=== PATIENT | female | born 1995 | race Caucasian/White ===

== ENCOUNTER 2024-07-31 01:06 | Day surgery (SDC) | payer OTHER, SELFPAY ==
--- NOTE | 2024-07-17 16:55 | SUR.PREOP ---
Report to the Outpatient Waiting Room, entrance under the green pavilion located off [facility], at time _1130_ on date _07/31/2024_. Planned Procedure Time: _1330_.? Time changes happen often and if your time is changed the preop area will call you the afternoon before. - You and your visitor will be asked to self-screen and do not enter if you have any COVID symptoms. Please call surgeon if you need to reschedule. - A mask is optional within the hospital at this time. Patients may have clear liquids (water, carbonated beverages, clear teas, apple juice) until 3 hours (1030) prior to surgery with a maximum of 20 ounces. - No food from midnight until time of surgery and no smoking, or chewing Tabacco (or any form of nicotine). No chewing gum, candy or mints. - Infants may have breast milk until 4 hours before surgery, infant formula 6 hours prior to surgery. - Children will be allowed to drink immediately following surgery.? If applicable, please bring a bottle or sippy cup to assist with drinking. Juice, water, soda, and popsicles are readily available.? For infants on formula, please bring formula the day of surgery.? Pacifiers are allowed. Take only the following medications with a SIP of water on the morning of surgery: _lamotrigine, aripiprazole_ DO NOT STOP ANY OF YOUR OTHER PRESCRIPTION MEDICATIONS PRIOR TO SURGERY EXCEPT THE FOLLOWING Medications to discontinue per physician _NA_ Date to take last dose_NA_ Please no make-up, nail mohawk, hairspray, perfume, deodorant, or body powder the day of surgery.? No jewelry (including any body piercings) or valuables the day of surgery, leave them at home.? Please take a shower or bath the night before, or the morning of, surgery with an antibacterial soap.? Wear comfortable, loose fitting clothing.? Children are encouraged to wear pajamas. - Jewelry must be removed prior to entering the operating room.? Rings and piercings that are not removed may be cut off. - The hospital will not accept responsibility for valuables.? - Please leave all valuables, including medications, at home the day of surgery. If you are going home after surgery, a licensed bung driver must drive you home.? - NO public transportation without another adult if you receive anesthesia. - We recommend that an adult stay with you for 24 hours following discharge. - We also recommend that you do not drive, make important decision, drink alcoholic beverages, or take any drugs that were not prescribed by your health care provider for at least 24 hours after your discharge time. For Pediatric surgeries, we recommend two adults accompany the child home. Hold all vitamins and supplements for 3 days per anesthesiologist. Follow any additional instructions given to you from your surgeon. Telephone instructions given to _To_and asked if any additional questions and then verbalized understanding. Patient advised to call surgeon office or pre surgery nurse liaison [phone] if any additional questions.
[2024-07-17 17:08] VITALS: BMI 21.3
[2024-07-31] VITALS (8 sets, daily range): BP systolic 102–135; BP diastolic 61–97; PULSE 69–87; RESP 12–15; TEMP 36.3–36.7; O2SAT 96–100; BMI 21.4
--- OUTSIDE RECORDS SUMMARY | 2024-07-31 01:08 | XMS_ITS | Patient Health Summary ---
Author Organization [facility] Address [address] [facility] [place] [address] Care Team Providers Care Lead Cook Name Role Phone Stacie Guthrie APRN-EVA Unavailable [phone] Karen Huizar MD Unavailable [phone] Gavino Mills MD Primary Care Provider [phone] Note from [facility],non-owned Affiliates and Associated Physician Practices is amultiple site organization consisting of ambulatory clinics and hospital sitesin [place], [place], [place] and [place]. This disclosure is being madepursuant to the Care Everywhere program and may not contain all information available regarding this patient. Last updated 18.[facility] Allergies * Amoxicillin(Rash) -Medium Criticality * Augmentin(Rash) -Medium Criticality * Nickel(Rash) -Medium Criticality Medications Be aware that medications may not be up to date on this document. Always verify current medications with the patient. No known medications Active Problems Problem Noted Date Diagnosed Date Vitamin D deficiency 10/29/2019 Major depressive disorder, recurrent episode, se juancarlos 11/21/2013 Immunizations * Covid Moderna primary monovalent 12+ yr 0.5mL(Given 09/18/2020) * INFLUENZA VACCINE(Given 03/13/2020) * TDAP (7yrs+)(Given 10/29/2019) Social History Tobacco Use Types Packs/Day Years Used Date Smoking Tobacco: Never Smokeless Tobacco: Never Alcohol Use Standard Drinks/Week Comments Yes 0 (1 standard drink = 0.6 oz pur e alcohol) social AUDIT-C Answer Date Recorded Q1: How often do you have a drink containing alc ohol? Never 08/05/2022 Average Number of Drinks Not on file 023 Frequency of Binge Drinking Not on file 07/15 PHQ-2 Answer Date Recorded Patient Health Questionnaire-2 Score 0 09/27/2023 Sex and Gender Information Value Date Recorded Sex Assigned at Female 02/06/2023 6:04 AM CDT Gender Identity Female 02/06/2023 6:04 AM CDT Sexual Orientation Straight 02/06/2023 6: 04 AM CDT Last Filed Vital Signs Vital Sign Reading Time Taken Comments Blood Pressure 116/62 09/27/2023 2:40 PM CDT Pulse 77 09/27/2023 2:40 PM CDT Temperature 36.8 C (98.2 F) 02/07/2023 3:52 PM CDT Respiratory Rate 22 02/07/2023 3:52 PM CDT Oxygen Saturation 96% 09/27/2023 2:40 PM CDT Inhaled Oxygen Concentration 100% 01/25/2013 1 0:27 PM CDT Weight 66.7 kg (147 lb) 09/27/2023 2:40 PM CDT Height 167.6 cm (5' 6 ) 09/27/2023 2:40 PM CDT Body Mass Index 23.73 09/27/2023 2:40 PM CDT Procedures * CARDIAC EKG ORDER(Performed 02/08/2023) * GLUCOSE - POINT OF CARE(Performed 02/07/2023) * COMPREHENSIVE METABOLIC PANEL(Performed 02/07/2023) * CBC W AUTO DIFFERENTIAL(Performed 02/07/2023) * EKG 12-LEAD(Performed 02/07/2023) Performed for Dizziness * HCG BETA BLOOD QUANTITATIVE(Performed 02/06/2023) * COMPREHENSIVE METABOLIC PANEL(Performed 02/06/2023) * CBC W AUTO DIFFERENTIAL(Performed 02/06/2023) * LIPASE BLOOD(Performed 08/05/2022) * COMPREHENSIVE METABOLIC PANEL(Performed 08/05/2022) * CBC W AUTO DIFFERENTIAL(Performed 08/05/2022) * SARS-COV-2 (COVID-19) RAPID(Performed 08/05/2022) * INTERPRETATION REFLEXED(Performed 08/27/2021) Performed for Need for hepatitis C screening test * MAGNESIUM BLOOD(Performed 08/27/2021) Performed for Dizziness, LOC (loss of consciousness) (HCC), Brain fog, Decreased appetite * HEPATITIS C ANTIBODY W RFLX PCR(Performed 08/27/2021) Performed for Need for hepatitis C screening test * HEMOGLOBIN A1C(Performed 08/27/2021) Performed for Dizziness, LOC (loss of consciousness) (HCC), Brain fog, Decreased appetite * T4 FREE(Performed 08/27/2021) Performed for Dizziness, LOC (loss of consciousness) (HCC), Brain fog, Decreased appetite * T3 FREE(Performed 08/27/2021) Performed for Dizziness, LOC (loss of consciousness) (HCC), Brain fog, Decreased appetite * TSH(Performed 08/27/2021) Performed for Dizziness, LOC (loss of consciousness) (HCC), Brain fog, Decreased appetite * VITAMIN B12 FOLATE PANEL(Performed 08/27/2021) Performed for Dizziness, LOC (loss of consciousness) (HCC), Brain fog, Decreased appetite * VITAMIN D 25-HYDROXY(Performed 08/27/2021) Performed for Dizziness, LOC (loss of consciousness) (HCC), Brain fog, Decreased appetite * COMPREHENSIVE METABOLIC PANEL(Performed 08/27/2021) Performed for Dizziness, LOC (loss of consciousness) (HCC), Brain fog, Decreased appetite * CBC W AUTO DIFFERENTIAL(Performed 08/27/2021) Performed for Dizziness, LOC (loss of consciousness) (HCC), Brain fog, Decreased appetite * EKG 12-LEAD(Performed 08/27/2021) Performed for Dizziness * FL OR CHOLANGIOGRAM(Performed 07/08/2020) Performed for Pain * PATHOLOGY TISSUE EXAM (STL)(Performed 07/08/2020) Performed for Gallstones, Biliary colic * PA LAP,CHOLECYSTECTOMY/GRAPH(Performed 07/08/2020) Performed for GALLSTONES * HCG URINE QUAL POCT NOTIFICATION(Performed 07/08/2020) Performed for Pre-op testing * HCG URINE QUALITATIVE - POCT (IP) INTERFACED(Performed 07/08/2020) * AMB REFERRAL TO COLORECTAL SURGERY(Performed 06/30/2020) Performed for Nausea and vomiting, intractability of vomiting not specified, unspecified vomiting type, Abnormal abdominal CT scan, Calculus of gallbladder without cholecystitis without obstruction, Elevated liver enzymes * IMAGING/RADIOLOGY/XRAY RESULTS ORDER(Performed 06/27/2020) * IMAGING/RADIOLOGY/XRAY RESULTS ORDER(Performed 06/27/2020) * LAB RESULTS ORDER(Performed 06/27/2020) * NM HEPATOBILIARY W EF(Performed 05/12/2020) Performed for Hematemesis with nausea * LAB RESULTS ORDER(Performed 05/01/2020) * PATHOLOGY/CYTOLOGY REPORT ORDER(Performed 01/29/2020) * EGD(Performed 01/28/2020) Performed for History of gastric ulcer, Hematemesis with nausea, Gastroesophageal reflux disease, esophagitis presence not specified * LAB RESULTS ORDER(Performed 01/24/2020) * CULTURE URINE(Performed 11/20/2019) Performed for Dysuria * MAGNESIUM BLOOD(Performed 09/25/2019) * LIPASE BLOOD(Performed 09/25/2019) * COMPREHENSIVE METABOLIC PANEL(Performed 09/25/2019) * CBC W AUTO DIFFERENTIAL(Performed 09/25/2019) * US PELVIS W TRANSVAG W DOP NON OB(Performed 06/10/2019) Performed for RLQ abdominal pain, Cyst of right ovary * HCG URINE QUAL POCT NOTIFICATION(Performed 06/10/2019) * CT ABDOMEN PELVIS W CONTRAST(Performed 06/10/2019) Performed for RLQ abdominal pain * HCG URINE QUALITATIVE - POCT (IP) INTERFACED(Performed 06/10/2019) * URINALYSIS REFLEX MICROSCOPIC REFLEX CULTURE(Performed 06/10/2019) * LIPASE BLOOD(Performed 06/10/2019) * COMPREHENSIVE METABOLIC PANEL(Performed 06/10/2019) * CBC W AUTO DIFFERENTIAL(Performed 06/10/2019) * CT RENAL STONE(Performed 01/31/2019) Performed for Gross hematuria, Flank pain, acute * HCG URINE QUALITATIVE - POCT (IP) INTERFACED(Performed 01/31/2019) * URINE MICROSCOPIC ONLY REFLEX TO CULTURE(Performed 01/31/2019) * URINALYSIS REFLEX MICROSCOPIC REFLEX CULTURE(Performed 01/31/2019) * CULTURE URINE(Performed 01/31/2019) * HCG URINE QUAL POCT NOTIFICATION(Performed 01/31/2019) * COMPREHENSIVE METABOLIC PANEL(Performed 01/31/2019) * CBC W AUTO DIFFERENTIAL(Performed 01/31/2019) * PATHOLOGY/CYTOLOGY REPORT ORDER(Performed 01/17/2019) * CARDIAC RHYTHM STRIP ORDER(Performed 01/17/2019) * GROSS + MICRO EXAM (ILL)(Performed 01/16/2019) Performed for Severe dysplasia of cervix * CONIZATION CERVIX LOOP ELECTRODE(Performed 01/16/2019) Performed for Severe dysplasia of cervix * CBC W AUTO DIFFERENTIAL(Performed 01/16/2019) Performed for Severe dysplasia of cervix * URINALYSIS REFLEX TO MICROSCOPIC NO CULTURE(Performed 01/16/2019) Performed for Severe dysplasia of cervix * HCG URINE QUALITATIVE - POCT (IP) BEAKER - ILL(Performed 01/16/2019) Performed for Severe dysplasia of cervix * HCG URINE QUALITATIVE - POCT (IP) BEAKER - ILL(Performed 11/26/2018) * URINE MICROSCOPIC ONLY REFLEX TO CULTURE(Performed 11/26/2018) * URINALYSIS REFLEX MICROSCOPIC REFLEX CULTURE(Performed 11/26/2018) * LIPASE BLOOD(Performed 11/26/2018) * COMPREHENSIVE METABOLIC PANEL(Performed 11/26/2018) * CBC W AUTO DIFFERENTIAL(Performed 11/26/2018) * CULTURE STREP GROUP A(Performed 11/26/2018) * STREP A SCREEN DIRECT W RFLX STREP A CULTURE(Performed 11/26/2018) * URINE MICROSCOPIC ONLY REFLEX TO CULTURE(Performed 05/30/2018) * URINALYSIS REFLEX MICROSCOPIC REFLEX CULTURE(Performed 05/30/2018) * XR ABD OBSTR SERIES W CHEST 1VW(Performed 05/30/2018) Performed for Constipation, unspecified constipation type * US PELVIS COMPLETE(Performed 12/21/2013) Performed for Pelvic pain in female, Hx of ovarian cyst * HCG URINE QUALITATIVE - POCT (IP) BEAKER - ILL(Performed 01/28/2013) * US TRANSVAG ONLY(Performed 01/26/2013) Performed for Abdominal pain, left lower quadrant * COMPREHENSIVE METABOLIC PANEL(Performed 01/25/2013) * CBC W AUTO DIFFERENTIAL(Performed 01/25/2013) * URINALYSIS REFLEX TO MICROSCOPIC NO CULTURE(Performed 01/25/2013) * URINE MICROSCOPIC ONLY(Performed 01/25/2013) * GROSS + MICRO EXAM(Performed 09/16/2008) Results * CARDIAC EKG ORDER (02/08/2023 3:37 PM CDT) Narrative 02/08/2023 3:37 PM CDT Ordered by an unspecified provider. Scanned Document CARDIAC SERVICES ORD ERABLES * GLUCOSE - POINT OF CARE (02/07/2023 4:08 PM CDT) Glucose WB/POC 91 70 - 106 mg/dL 02/08/2023 2:59 PM CDT [facility] Specimen Type Venous 02/08/2023 2:59 PM CDT [facility] Blood BLOOD SPECIMEN / Unknown 02/07/2023 4:08 PM CDT 02/08/2023 2:59 PM CDT Provider Unknown LAB - POINT OF CARE ORDERABLES [facility] [address] [place] [address] * (ABNORMAL) CBC W AUTO DIFFERENTIAL (02/07/2023 4:08 PM CDT) Only the most recent of10 resultswithin the time period is included. WBC 13.6(H) 4.4 - 10.7 x10E9/L 02/07/2023 4:38 PM CDT [facility] WBC Corrected 02/07/2023 4:38 PM CDT [facility] RBC 4.16 3.80 - 5.20 x10E12/L 02/07/2023 4:38 PM CDT [facility] Hemoglobin 12.2 12.0 - 15.6 gm/dL 02/07/2023 4:38 PM CDT [facility] Hematocrit 36.6 35.9 - 45.5 % 02/07/2023 4:38 PM CDT [facility] MCV 88.0 80.7 - 98.3 fl 02/07/2023 4:38 PM CDT [facility] MCH 29.3 26.7 - 34.0 pg 02/07/2023 4:38 PM CDT [facility] MCHC 33.3 30.8 - 35.9 gm/dL 02/07/2023 4:38 PM CDT [facility] Platelet Count 191 153 - 416 x10E9/L 02/07/2023 4:38 PM CDT [facility] RDW-CV 12.1 12.1 - 14.9 % 02/07/2023 4:38 PM CDT [facility] MPV 11.7 9.4 - 12.9 fl 02/07/2023 4:38 PM CDT [facility] Neutrophils % 83.6(H) 44.0 - 73.0 % 02/07/2023 4:38 PM CDT [facility] Lymphocytes % 9.4(L) 20.0 - 43.0 % 02/07/2023 4:38 PM CDT [facility] Monocytes % 6.4 5.0 - 13.0 % 02/07/2023 4:38 PM CDT [facility] Eosinophils % 0.0 0.0 - 6.0 % 02/07/2023 4:38 PM CDT [facility] Basophils % 0.1 0.0 - 2.0 % 02/07/2023 4:38 PM CDT [facility] Immature Granulocytes 0.5 0 - 1 % 02/07/2023 4:38 PM CDT [facility] Neutrophil Absolute 11.35(H) 2.01 - 7.14 x10E9/L 02/07/2023 4:38 PM CDT [facility] Lymphocytes Absolute 1.28 1.07 - 3.94 x10E9/L 02/07/2023 4:38 PM CDT [facility] Monocytes Absolute 0.87 0.26 - 1.07 x10E9/L 02/07/2023 4:38 PM CDT [facility] Eosinophils Absolute 0.00 0 - 0.47 x10E9/L 02/07/2023 4:38 PM CDT [facility] Basophils Absolute 0.02 0 - 0.08 x10E9/L 02/07/2023 4:38 PM CDT [facility] Immature Granulocytes Absolute 0.07(H) 0.00 - 0.06 x10E9/L 02/07/2023 4:38 PM CDT [facility] nRBC Auto 0 /100 WBC 02/07/2023 4:38 PM CDT [facility] Blood BLOOD SPECIMEN / Unknown Venipuncture / Unknown 02/07/2023 4:08 PM CDT 02/07/2023 4:34 PM CDT Valery Guzmán DROP WIRE HANGER-CAGE CLERK LAB - HEMATOLOGY ORDERABLES [facility] [address] [place] [address] * (ABNORMAL) COMPREHENSIVE METABOLIC PANEL (02/07/2023 4:08 PM CDT) Only the most recent of9 resultswithin the time period is included. Glucose 85 70 - 105 mg/dL 02/07/2023 4:58 PM CDT [facility] Sodium 140 136 - 145 mmol/L 02/07/2023 4:58 PM CDT [facility] Potassium 3.7 3.5 - 5.1 mmol/L 02/07/2023 4:58 PM CDT [facility] Chloride 109(H) 98 - 107 mmol/L 02/07/2023 4:58 PM CDT [facility] CO2 17(L) 23 - 31 mmol/L 02/07/2023 4:58 PM CDT [facility] Calcium 9.3 8.4 - 10.4 mg/dL 02/07/2023 4:58 PM CDT [facility] Anion Gap 14 8 - 18 mmol/L 02/07/2023 4:58 PM CDT [facility] BUN 12 7 - 18.7 mg/dL 02/07/2023 4:58 PM CDT [facility] Creatinine 0.87 0.57 - 1.11 mg/dL 02/07/2023 4:58 PM CDT [facility] Alkaline Phosphatase 47 40 - 150 U/L 02/07/2023 4:58 PM CDT [facility] ALT 17 0 - 61 U/L 02/07/2023 4:58 PM CDT [facility] AST 20 5 - 34 U/L 02/07/2023 4:58 PM CDT [facility] Protein Total 7.3 6.4 - 8.3 gm/dL 02/07/2023 4:58 PM CDT [facility] Albumin 4.5 3.5 - 5.2 gm/dL 02/07/2023 4:58 PM CDT [facility] Bilirubin Total 1.2 0.2 - 1.2 mg/dL 02/07/2023 4:58 PM CDT [facility] eGFR by CKD-EPI >90 >=90 mL/min/1.7 3 m2 02/07/2023 4:58 PM CDT [facility] Blood BLOOD SPECIMEN / Unknown Venipuncture / Unknown 02/07/2023 4:08 PM CDT 02/07/2023 4:34 PM CDT Valery Guzmán APRN-CAGE CLERK LAB - CHEMISTRY ORDERABLES Performing Organization Address City/[facility]/ZIP Co de Phone Number [facility] [address] [place] [address] * EKG 12-LEAD (02/07/2023 4:00 PM CDT) Only the most recent of2 resultswithin the time period is included. Ventricular Rate 73 BPM [facility] Atrial Rate 73 BPM [facility] P-R Interval 118 ms [facility] QRS Duration ms 82 ms [facility] Q-T Interval ms 398 ms [facility] QTC Calculation (Bezet) 438 ms [facility] Calculated P [employer] 61 degrees [facility] Calculated R [employer] 78 degrees [facility] Calculated T [employer] 67 degrees [facility] Interpretation EKG Normal sinus rhythm with sinus arrhythmia Cannot rule out Anterior infarct , age undetermined Abnormal ECG No previous ECGs available Confirmed by [facility] ([id number] on 02/08/2023 10:21:23 AM [facility] 02/07/2023 4:00 PM CDT 02/08/2023 10:21 AM CDT Brody Quiles MD ECG ORDERABLES Performing Organization Address City/[facility]/ZIP Co de Phone Number [facility] * HCG BETA BLOOD QUANTITATIVE (02/06/2023 5:04 AM CDT) hCG Quantitative <1.20 mIU/mL 02/07/20 6:38 AM CDT [facility] Blood BLOOD SPECIMEN / Unknown Venipuncture / Unknown 02/06/2023 5:04 AM CDT 02/06/2023 5:09 AM CDT Narrative [facility] - 02/06/2023 6:38 AM CDT hCG Reference Range, mIU/mL: Males 0-2.0 Non Females 0-6.0 Perimenopausal Females ages 41-55* 0-7.7 Postmenopausal Females age >55* 0-14 Females, Weeks after Last Menstrual Period 0.2-1 week 5-50 1 - 2 weeks 50-500 2 - 3 weeks 100-5000 3 - 4 weeks 500-10,000 4 - 5 weeks 1000-50,000 5 - 6 weeks 10,000-100,000 6 - 8 weeks 15,000-200,000 2 - 3 months 10,000-100,000 Trophoblastic Disease >100,000 *In higher than expected hCG in females > age 40, a serum FSH >20 IU/L makes unlikely. You Harrell MD LAB - CHEMISTRY O RDERABLES [facility] [address] [place] [address] * SARS-COV-2 (COVID-19) RAPID (08/05/2022 10:48 PM CAR STARTER) COVID-19 PCR Not detected Not detected 08/05/19 11:38 PM CAR STARTER [facility] Microbiology SPECIMEN FROM NASOPHARYNGEAL STRUCTURE / Unknown Collection / Unknown 08/05/2022 10:48 PM CAR STARTER 08/05/2022 11:05 PM CAR STARTER Narrative [facility] - 08/05/2022 11:38 PM CAR STARTER The Cepheid Xpert Xpress SARS-COV-2 has been authorized by the Food and Drug Administration (FDA) under an Emergency Use Authorization (EUA). This test has been validated in accordance with the FDA's guidance document Policy for Diagnostic Testing in Laboratories Certified to perform High Complexity Testing under CLIA prior to Emergency Use Authorization for Coronavirus Disease-2019 during the Public Health Emergency issued on August 11, 2019. FDA independent review of this validation is pending. This test is only authorized for the duration of the time the declaration that circumstances exist justifying the authorization of emergency use of in vitro diagnostic tests for detection of SARS-COV-2 virus and/or diagnosis of COVID-19 infection under 564(b) (1) of the Act. 21 U.S.C. 360bbb-3 (b) (1), unless the authorization is terminated or revoked sooner. Fact Sheets for this EUA assay are available upon request. Juanito Adams MD LAB - MICROBIOLOGY O RDERABLES Performing Organization Address City/[facility]/ZIP Co de Phone Number [facility] [address] [place] [id number] * LIPASE BLOOD (08/05/2022 10:48 PM CAR STARTER) Only the most recent of4 resultswithin the time period is included. Lipase 58 8 - 78 U/L 08/05/2022 11:26 PM CAR STARTER [facility] Blood BLOOD SPECIMEN / Unknown Venipuncture / Unknown 08/05/2022 10:48 PM CAR STARTER 08/05/2022 11:05 PM CAR STARTER Juanito Adams MD LAB - CHEMISTRY ORDE RABSUSAN Performing Organization Address [facility] Co de Phone Number [facility] [address] [place] [address] * INTERPRETATION REFLEXED (08/27/2021 3:46 PM CDT) Interpretation [facility] ACCOUNT BILL Comment: Negative Not infected with HCV, unless recent infection is suspected or other evidence exists to indicate HCV infection. 08/27/2021 3:46 PM CDT 08/27/2021 Narrative Resulting Agency Comment Lab Testing performed at: [facility] [address] [facility] [phone] Sade Aragon DROP WIRE HANGER-CAGE CLERK LAB - SEROLOGY ORDERABLES Performing Organization Address City/[facility]/ZIP Co de Phone Number [facility] ACCOUNT BILL [address] [place] [address] * HEPATITIS C ANTIBODY W RFLX PCR (08/27/2021 3:46 PM CDT) Hepatitis C Antibody <0.1 0.0 - 0.9 s/co ratio [facility] ACCOUNT BILL Blood BLOOD SPECIMEN / Unknown 08/27/2021 3:46 PM CDT 08/27/2021 Narrative Resulting Agency Comment Lab Testing performed at: [facility] [address] [facility] [phone] Sade Aragon DROP WIRE HANGER-CAGE CLERK LAB - CHEMISTRY ORDERABLES [facility] ACCOUNT BILL [address] [place] [address] * T3 FREE (08/27/2021 3:46 PM CDT) Pathologist [facility] T3 Free 3.0 2.0 - 4.4 pg/mL [facility] ACCOUNT BILL Blood BLOOD SPECIMEN / Unknown 08/27/2021 3:46 PM CDT 08/27/2021 Narrative Resulting Agency Comment Lab Testing performed at: [facility] [address] [facility] [place] [phone] Sade Aragon DROP WIRE HANGER-CAGE CLERK LAB - CHEMISTRY ORDERABLES Performing Organization Address City/[facility]/ZIP Co de Phone Number [facility] ACCOUNT BILL [address] [place] [address] * HEMOGLOBIN A1C (08/27/2021 3:46 PM CDT) Pathologist [facility] Hemoglobin A1c 5.4 4.8 - 5.6 % [facility] ACCOUNT BILL Comment: . Prediabetes: 5.7 - 6.4 Diabetes: >6.4 Glycemic control for adults with diabetes: <7.0 Blood BLOOD SPECIMEN / Unknown 08/27/2021 3:46 PM CDT 08/27/2021 Narrative Resulting Agency Comment Lab Testing performed at: [facility] [address] [facility] [phone] Saed Aragon DROP WIRE HANGER-CAGE CLERK LAB - CHEMISTRY ORDERABLES [facility] ACCOUNT BILL [address] [place] [address] * VITAMIN D 25-HYDROXY (08/27/2021 3:46 PM CDT) Vitamin D, 25 Hydroxy 32.1 30.0 - 100.0 ng/mL [facility] ACCOUNT BILL Comment: Vitamin D deficiency has been defined by the [place] of [employer] and an Endocrine Society practice guideline as a level of serum 25-OH vitamin D less than 20 ng/mL (1,2). The Endocrine Society went on to further define vitamin D insufficiency as a level between 21 and 29 ng/mL (2). 1. IOM ([place] of [employer]). 2010. Dietary reference intakes for calcium and D. [place]: The National Academies Press. 2. Lester MF, Klaudia PERERA, Savi THOMAS, et al. Evaluation, treatment, and prevention of vitamin D deficiency: an Endocrine Society clinical practice guideline. JCEM. 2010; 96(7):1911-30. Blood BLOOD SPECIMEN / Unknown 08/27/2021 3:46 PM CDT 08/27/2021 Narrative Resulting Agency Comment Lab Testing performed at: [facility] [address] [facility] [phone] Sade Aragon DROP WIRE HANGER-CAGE CLERK LAB - CHEMISTRY ORDERABLES Performing Organization Address City/[facility]/ZIP Co de Phone Number [facility] ACCOUNT BILL [address] [place] [address] * MAGNESIUM BLOOD (08/27/2021 3:46 PM CDT) Only the most recent of2 resultswithin the time period is included. Magnesium 2.3 1.6 - 2.3 mg/dL [facility] ACCOUNT BILL Blood BLOOD SPECIMEN / Unknown 08/27/2021 3:46 PM CDT 08/27/2021 Narrative Resulting Agency Comment Lab Testing performed at: [facility] [address] [facility] [phone] Sade Aragon DROP WIRE HANGER-CAGE CLERK LAB - CHEMISTRY ORDERABLES [facility] ACCOUNT BILL [address] [place] [address] * VITAMIN B12 FOLATE PANEL (08/27/2021 3:46 PM CDT) Vitamin B12 300 232 - 1,245 pg/mL [facility] ACCOUNT BILL Folate 9.8 >3.0 ng/mL [facility] ACCOUNT BILL Comment: A serum folate concentration of less than 3.1 ng/mL is considered to represent clinical deficiency. Blood BLOOD SPECIMEN / Unknown 08/27/2021 3:46 PM CDT 08/27/2021 Narrative Resulting Agency Comment [facility] [address] [facility] [phone] Sade Aragon DROP WIRE HANGER-CAGE CLERK LAB - CHEMISTRY ORDERABLES [facility] ACCOUNT BILL [address] [place] [address] * TSH (08/27/2021 3:46 PM CDT) TSH 1.230 0.450 - 4.500 uIU/mL [facility] ACCOUNT BILL Blood BLOOD SPECIMEN / Unknown 08/27/2021 3:46 PM CDT 08/27/2021 Narrative Resulting Agency Comment Lab Testing performed at: [facility] [address] [facility] [phone] Sade Aragon DROP WIRE HANGER-CAGE CLERK LAB - CHEMISTRY ORDERABLES [facility] ACCOUNT BILL [address] [place] [address] * T4 FREE (08/27/2021 3:46 PM CDT) T4 Free 1.27 0.82 - 1.77 ng/dL [facility] ACCOUNT BILL Blood BLOOD SPECIMEN / Unknown 08/27/2021 3:46 PM CDT 08/27/2021 Narrative Resulting Agency Comment [facility] [address] [facility] [phone] Sade Aragon DROP WIRE HANGER-CAGE CLERK LAB - CHEMISTRY ORDERABLES [facility] ACCOUNT BILL [address] [place] [address] * FL OR CHOLANGIOGRAM (07/08/2020 10:45 AM CAR STARTER) Anatomical Region Laterality Modality Abdomen Radiographic Tamar ging 07/08/2020 11:1 2 AM CAR STARTER Impressions 07/08/2020 11:14 AM CAR STARTER No evidence of retained common bile duct calculi. *Reading Radiologist: Brody Hinojosa on 07/08/2020 at 11:14 AM Narrative 07/08/2020 11:14 AM CAR STARTER EXAM: Intraoperative cholangiogram HISTORY: Evaluate for retained calculi none COMPARISON: None. FINDINGS: Multiple spot images from a cystic duct injection demonstrates filling of the common bile duct and prompt spillage into the duodenum without evidence of retained calculi. The visualized portions of the intrahepatic biliary radicles are normal in appearance. 13 seconds of fluoroscopy time was utilized. Procedure Note Brody Hinojosa MD - 07/08/2020 EXAM: Intraoperative cholangiogram HISTORY: Evaluate for retained calculi none COMPARISON: None. FINDINGS: Multiple spot images from a cystic duct injection demonstrates filling of the common bile duct and prompt spillage into the duodenum without evidence of retained calculi. The visualized portions of the intrahepatic biliary radicles are normal in appearance. 13 seconds of fluoroscopy time was utilized. IMPRESSION No evidence of retained common bile duct calculi. *Reading Radiologist: Brody Hinojosa on 07/08/2020 at 11:14 AM Kendall Smith DO FLUOROSCOPY ORDERAB LES * PATHOLOGY TISSUE EXAM (STL) (07/08/2020 10:39 AM CAR STARTER) Case Report Surgical Pathology Report Case: [id number] Authorizing Provider: Kendall Smith DO Collected: 07/08/2020 10:39 AM Ordering Location: [facility] Received: 07/08/2020 02:42 PM Quincy Dia-OP Pathologist: Nilesh Hou MD Specimen: Gallbladder 07/10/2020 11:55 AM CAR STARTER [facility] Final Diagnosis Gallbladder, excision- Mild chronic inflammation 07/10/2020 11:55 AM CAR STARTER [facility] Clinical History Gallstones 07/10/2020 11:55 AM CAR STARTER [facility] Gross Description One specimen received in a formalin filled container labeled gallbladder consists of a 7 x 2 x 1 cm yellow-green intact gallbladder with a single silver metallic clip near the 0.2 cm diameter patent cystic duct. Gallbladder is opened and there are no stones identified within the gallbladder or container. Wall thickness is 0.3 cm and mucosa is velvety yellow red. [employer] sections are submitted in A1. 07/10/2020 11:55 AM CAR STARTER [facility] Microscopic Description Microscopic examination corroborates the diagnosis. 07/10/2020 11:55 AM CAR STARTER [facility] Disclaimer All histochemical and/or immunohistochemical results are interpreted with controls that demonstrate appropriate staining reactions before reporting results. Note on use of immunocytochemistry reagents: This test was developed and its performance characteristic determined by [facility], Department of Laboratory Medicine. It has not been cleared or approved by the U.S. Food and Drug Administration (FDA). The FDA has determined that such clearance or approval is not necessary. The test is used for clinical purpose. It should not be regarded as investigational or for research. This laboratory is certified to perform high complexity testing. The performance characteristics of the IHC/LAURA assays have been validated on formalin-fixed paraffin embedded tissues only. The assays have not been validated on decalcified tissues. Results should be interpreted with caution. 07/10/2020 11:55 AM CAR STARTER [facility] Performed By Performed and Resulted by: [facility] at [facility] [place], [address] [place] [address]. [id number] Drivers' Cash Clerk: Nilesh Hou M.D. CAP: [phone] Note: [facility] Anatomical Pathology specimens and Clinical Pathology Consultation services are resulted by [facility], superseding the R esulting Labs field below. 07/10/2020 11:55 AM CAR STARTER [facility] Embedded Images 07/10/2020 11:55 AM CAR STARTER [facility] Pathology/Cytolo gy ENTIRE GALLBLADDER / Unknown 07/08/2020 10:39 AM CAR STARTER 07/08/2020 2:42 PM CAR STARTER Comment:Pre-op diagnosis: GALLSTONES Kendall Smith DO LAB - PATHOLOGY/CYT OLOGY ORDERABLES Performing Organization Address [facility] Co de Phone Number [facility] [address] [address] * HCG URINE QUAL POCT NOTIFICATION (07/08/2020 10:00 AM CAR STARTER) Only the most recent of3 resultswithin the time period is included. Comment Notification Label Only - See Separate Report 07/08/2020 10:00 AM CAR STARTER [facility] Urine URINE / Unknown 8:48 AM CAR STARTER Mariusz Giang MD LAB - URINALYSIS ORD ERABLES Performing Organization Address [facility] Co de Phone Number [facility] [address] [address] * HCG URINE QUALITATIVE - POCT (IP) INTERFACED (07/08/2020 8:58 AM CAR STARTER) Only the most recent of3 resultswithin the time period is included. HCG Qual Urine Negative Negative 07/08/2020 9:04 AM CAR STARTER [facility] Urine URINE / Unknown 07/08/2020 8 :58 AM CAR STARTER 07/08/2020 9:04 AM CAR STARTER Kendall Smith DO LAB - POINT OF CARE ORDERABLES Performing Organization Address [facility] Co de Phone Number [facility] [address] [address] * AMB REFERRAL TO COLORECTAL SURGERY (06/30/2020 10:53 AM CAR STARTER) Stacie Guthrie DROP WIRE HANGER-CAGE CLERK OUTPATIENT REFE RRALS * LAB RESULTS ORDER (06/27/2020) Only the most recent of3 resultswithin the time period is included. Scanned Document LAB - THERAPEUTIC DR BROWN MONITORING ORDERABLES * IMAGING RADIOLOGY XRAY RESULTS ORDER (06/27/2020) Only the most recent of2 resultswithin the time period is included. Anatomical Region Laterality Modality Other Scanned Document IMAGING * NM HEPATOBILIARY W CCK EF (05/12/2020 3:56 PM CAR STARTER) Anatomical Region Laterality Modality Abdomen Nuclear Medicine 05/12/2020 3:58 PM CAR STARTER Impressions 05/12/2020 3:59 PM CAR STARTER Normal nuclear medicine hepatobiliary scan with normal gallbladder ejection fraction. *Reading Radiologist: Vivek Lacey on 05/12/2020 at 3:59 PM Narrative 05/12/2020 3:59 PM CAR STARTER Nuclear medicine hepatobiliary scan Comparison: None Correlation: CT the abdomen/pelvis 06/10/2019. History: Right upper quadrant pain Technique: 5 mCi of technetium 99m Choletec was injected intravenously with dynamic upper abdominal planar scintigraphy. Subsequently 8 ounces of ensure were administered orally and a gallbladder ejection fraction was calculated. Findings: There is appropriate uptake of tracer in the liver and excretion into the biliary tree. The gallbladder fills and there is subsequent spill into the duodenum. The gallbladder ejection fraction is calculated at 83% (lower limits of normal: approximately 35%). Procedure Note Vivek Lacey MD - 05/12/2020 Nuclear medicine hepatobiliary scan Comparison: None Correlation: CT the abdomen/pelvis 06/10/2019. History: Right upper quadrant pain Technique: 5 mCi of technetium 99m Choletec was injected intravenously with dynamic upper abdominal planar scintigraphy. Subsequently 8 ounces of ensure were administered orally and a gallbladder ejection fraction was calculated. Findings: There is appropriate uptake of tracer in the liver and excretion into the biliary tree. The gallbladder fills and there is subsequent spill into the duodenum. The gallbladder ejection fraction is calculated at 83% (lower limits of normal: approximately 35%). IMPRESSION Normal nuclear medicine hepatobiliary scan with normal gallbladder ejection fraction. *Reading Radiologist: Vivek Lacey on 05/12/2020 at 3:59 PM Stacie L. Jerri DROP WIRE HANGER-CAGE CLERK NM ORDERABLES * PATHOLOGY/CYTOLOGY REPORT ORDER (01/29/2020) Only the most recent of2 resultswithin the time period is included. Scanned Document LAB - PATHOLOGY/CYTO LOGY ORDERABLES * EGD (01/28/2020) Kerri Carolee Morris DROP WIRE HANGER-CAGE CLERK GI PROCEDURE O RDERABLES Performing Organization Address City/[facility]/ZIP Co de Phone Number [facility] RESULT SCAN * CULTURE URINE (11/20/2019 1:54 PM CDT) Only the most recent of2 resultswithin the time period is included. Urine Culture Routine Final report [facility] ACCOUNT BILL Result 1 No growth [facility] ACCOUNT BILL Urine URINE SPECIMEN OBTAINED BY CLEAN CATCH PROCEDURE / Unknown 11/20/2019 1:54 PM CDT 11/20/2019 Narrative Resulting Agency Comment Lab Testing performed at: [facility] [address] [facility] [id number] Sadeodalys Aragon DROP WIRE HANGER-CAGE CLERK LAB - MICROBIOL OGY ORDERABLES Performing Organization Address City/[facility] Co de Phone Number [facility] ACCOUNT BILL [address] [place] [address] * US PELVIS W TRANSVAG W DOP NON OB (06/10/2019 8:42 AM CAR STARTER) Anatomical Region Laterality Modality Pelvis Ultrasound 06/10/2019 8:44 AM CAR STARTER Impressions 06/10/2019 8:48 AM CAR STARTER 1. Hemorrhagic right ovarian cysts. Follow-up pelvic ultrasound is recommended in 6-12 weeks. 2. Otherwise unremarkable pelvic ultrasound. Normal color and special Doppler flow to the bilateral ovaries. Reading Radiologist: Eugenia Rand MD on 06/10/2019 at 8:48 AM Narrative 06/10/2019 8:48 AM CAR STARTER Transabdominal and transvaginal pelvic ultrasound COMPARISON: CT dated 06/10/2019. HISTORY: Right lower quadrant pain TECHNIQUE: Real time transabdominal and transvaginal pelvic ultrasound was performed by the surveying teacher with DICOM image capture. FINDINGS: Uterus measures 3.2 x 6.1 x 4.3 cm. Endometrial complex measures 9 mm. No uterine masses identified. Ovarian Measurement in centimeters: Right: 2.0 x 3.4 x 3.3 cm. Left: 1.6 x 2.4 x 2.4 cm. There is a 2.8 x 3.4 x 3.5 cm hemorrhagic right ovarian cyst. A 2.7 x 1.7 x 2.1 cm probable hemorrhagic cyst is also seen within the right ovary. The left ovary is unremarkable. There is normal color and spectral Doppler flow to the bilateral ovaries. No evidence of significant free intraperitoneal fluid. Procedure Note Eugenia Rand MD - 06/10/2019 Transabdominal and transvaginal pelvic ultrasound COMPARISON: CT dated 06/10/2019. HISTORY: Right lower quadrant pain TECHNIQUE: Real time transabdominal and transvaginal pelvic ultrasound was performed by the surveying teacher with DICOM image capture. FINDINGS: Uterus measures 3.2 x 6.1 x 4.3 cm. Endometrial complex measures 9 mm. No uterine masses identified. Ovarian Measurement in centimeters: Right: 2.0 x 3.4 x 3.3 cm. Left: 1.6 x 2.4 x 2.4 cm. There is a 2.8 x 3.4 x 3.5 cm hemorrhagic right ovarian cyst. A 2.7 x 1.7 x 2.1 cm probable hemorrhagic cyst is also seen within the right ovary. The left ovary is unremarkable. There is normal color and spectral Doppler flow to the bilateral ovaries. No evidence of significant free intraperitoneal fluid. IMPRESSION 1. Hemorrhagic right ovarian cysts. Follow-up pelvic ultrasound is recommended in 6-12 weeks. 2. Otherwise unremarkable pelvic ultrasound. Normal color and special Doppler flow to the bilateral ovaries. Reading Radiologist: Eugenia Rand MD on 06/10/2019 at 8:48 AM Juanito Adams MD US ORDERABLES * CT ABDOMEN PELVIS W CONTRAST - acute abdomen (06/10/2019 7:05 AM CAR STARTER) Anatomical Region Laterality Modality Abdomen, Pelvis Computed Tomogra phy 06/10/2019 8:48 AM CAR STARTER Impressions 06/10/2019 8:53 AM CAR STARTER Right adnexal cysts. Otherwise unremarkable CT the abdomen and pelvis. A preliminary Teleradiology report was provided to ED at time of imaging; see [employer] PACS and EMR [employer] for documentation. Reading Radiologist: Eugenia Rand MD on 06/10/2019 at 8:53 AM Narrative 06/10/2019 8:[address] abdomen and pelvis with contrast. HISTORY: Right lower quadrant pain TECHNIQUE: Helical CT acquisition of abdomen and pelvis with intravenous iodinated contrast. Contrast: 80 cc Isoview-370. COMPARISON: 01/31/2019. FINDINGS: The visualized lung bases are clear. The liver, gallbladder, pancreas, spleen, and bilateral adrenal glands are within normal limits. The bilateral kidneys enhance symmetrically. A 1 cm low-density lesion in the lower pole of the right kidney likely represents a cyst. No hydronephrosis. The uterus is unremarkable. There are two right adnexal cysts, the larger measuring 3.8 cm. No bowel obstruction. Normal appendix. No free air or free fluid. No lymphadenopathy is identified. The abdominal aorta is normal in caliber. No acute osseous abnormality. Procedure Note Eugenia Rand MD - 06/10/2019 CT abdomen and pelvis with contrast. HISTORY: Right lower quadrant pain TECHNIQUE: Helical CT acquisition of abdomen and pelvis with intravenous iodinated contrast. Contrast: 80 cc Isoview-370. COMPARISON: 01/31/2019. FINDINGS: The visualized lung bases are clear. The liver, gallbladder, pancreas, spleen, and bilateral adrenal glands are within normal limits. The bilateral kidneys enhance symmetrically. A 1 cm low-density lesion in the lower pole of the right kidney likely represents a cyst. No hydronephrosis. The uterus is unremarkable. There are two right adnexal cysts, the larger measuring 3.8 cm. No bowel obstruction. Normal appendix. No free air or free fluid. No lymphadenopathy is identified. The abdominal aorta is normal in caliber. No acute osseous abnormality. IMPRESSION Right adnexal cysts. Otherwise unremarkable CT the abdomen and pelvis. A preliminary Teleradiology report was provided to ED at time of imaging; see [employer] PACS and EMR [employer] for documentation. Reading Radiologist: Eugenia Rand MD on 06/10/2019 at 8:53 AM Juanito Adams MD CT ORDERABLES * (ABNORMAL) URINALYSIS REFLEX MICROSCOPIC REFLEX CULTURE (06/10/2019 6:07 AM CAR STARTER) Only the most recent of4 resultswithin the time period is included. Color UA Yellow Straw, Yellow 06/10/2019 6:17 AM CAR STARTER [facility] Clarity UA Cloudy(A) Clear 06/10/2019 6:17 AM CAR STARTER [facility] Glucose UA Negative Negative 06/10/2019 6:17 AM CAR STARTER [facility] Bilirubin UA Negative Negative 06/10/2019 6:17 AM CAR STARTER [facility] Ketone UA Negative Negative 06/10/2019 6:17 AM CAR STARTER [facility] Specific [place] UA 1.018 1.005 - 1.030 06/10/2019 6:17 AM CAR STARTER [facility] Blood UA Negative Negative 06/10/2019 6:17 AM CAR STARTER [facility] pH UA 9.0(H) 5.0 - 8.0 pH 06/10/2019 6:17 AM CAR STARTER [facility] Protein UA Negative Negative 06/10/2019 6:17 AM CAR STARTER [facility] Urobilinogen UA Negative Negative mg/dL 06/10/2019 6:17 AM CAR STARTER [facility] Nitrite UA Negative Negative 06/10/2019 6:17 AM CAR STARTER [facility] Leukocyte UA Negative Negative 06/10/2019 6:17 AM CAR STARTER [facility] Urine Microscopy Urine microscopy not indicated 06/10/2019 6:17 AM CAR STARTER [facility] Reflex Status Culture not indicated 06/10/2019 6:17 AM CAR STARTER [facility] Urine URINE SPECIMEN OBTAINED BY CLEAN CATCH PROCEDURE / Unknown Collection / Unknown 06/10/2019 6:07 AM CAR STARTER 06/10/2019 6:11 AM CAR STARTER Narrative [facility] - 06/10/2019 6:17 AM CAR STARTER Juanito Adams MD LAB - URINALYSIS ORD ERABLES [facility] [address] [address] * CT RENAL STONE (01/31/2019 10:02 AM CDT) Anatomical Region Laterality Modality Abdomen Computed Tomogra phy 01/31/2019 10:0 7 AM CDT Impressions 01/31/2019 10:14 AM CDT No hydronephrosis or nephrolithiasis. No calcific densities at the expected level of the ureters or in the bladder lumen. No abnormal distention of the gallbladder. No intra-abdominal free fluid or bowel distention. Significant fat stranding around the bladder, suggestive of severe cystitis. Correlate with lab work. Few sigmoid diverticuli, with no evidence of surrounding inflammation. Normal appendix. Reading Radiologist: Raegan Ceballos MD on 01/31/2019 at 10:14 AM Narrative 01/31/2019 10:[address] abdomen and pelvis without contrast: HISTORY: 24-year-old to with abdominal pain for 2 days, radiating to her back. Evaluation for urinary stone. TECHNIQUE: CT examination of the abdomen and pelvis was performed on 01/31/2019 using urinary stone protocol. Neither oral nor IV contrast was used which compromises evaluation for other etiologies. Sagittal and coronal reconstructions were also obtained. COMPARISON: None. FINDINGS: Abdominal findings: There is no hydronephrosis or nephrolithiasis. There are no calcific densities at the expected levels of the ureters or in the bladder lumen. The partial and limited noncontrast evaluation of the abdomen demonstrates no abnormal distention of the gallbladder. The spleen, adrenal glands, and pancreatic contours appear unremarkable. There is no intra-abdominal free fluid or bowel loop distention. Pelvic findings: The bladder is full. Of note, is the presence of significant fat stranding around the bladder wall. The uterus appears normal in size. There are few sigmoid diverticuli, without definite evidence of surrounding inflammation. There is fecal stasis consistent with constipation. The appendix is normal. There is no pelvic or retroperitoneal adenopathy. The limited images of the lower lungs appear unremarkable. Procedure Note Raegan Ceballos MD - 01/31/2019 CT abdomen and pelvis without contrast: HISTORY: 24-year-old to with abdominal pain for 2 days, radiating to her back. Evaluation for urinary stone. TECHNIQUE: CT examination of the abdomen and pelvis was performed on 01/31/2019 using urinary stone protocol. Neither oral nor IV contrast was used which compromises evaluation for other etiologies. Sagittal and coronal reconstructions were also obtained. COMPARISON: None. FINDINGS: Abdominal findings: There is no hydronephrosis or nephrolithiasis. There are no calcific densities at the expected levels of the ureters or in the bladder lumen. The partial and limited noncontrast evaluation of the abdomen demonstrates no abnormal distention of the gallbladder. The spleen, adrenal glands, and pancreatic contours appear unremarkable. There is no intra-abdominal free fluid or bowel loop distention. Pelvic findings: The bladder is full. Of note, is the presence of significant fat stranding around the bladder wall. The uterus appears normal in size. There are few sigmoid diverticuli, without definite evidence of surrounding inflammation. There is fecal stasis consistent with constipation. The appendix is normal. There is no pelvic or retroperitoneal adenopathy. The limited images of the lower lungs appear unremarkable. IMPRESSION No hydronephrosis or nephrolithiasis. No calcific densities at the expected level of the ureters or in the bladder lumen. No abnormal distention of the gallbladder. No intra-abdominal free fluid or bowel distention. Significant fat stranding around the bladder, suggestive of severe cystitis. Correlate with lab work. Few sigmoid diverticuli, with no evidence of surrounding inflammation. Normal appendix. Reading Radiologist: Raegan Ceballos MD on 01/31/2019 at 10:14 AM Master Mcnamara MD CT ORDERABLES * (ABNORMAL) URINE MICROSCOPIC ONLY REFLEX TO CULTURE (01/31/2019 9:14 AM CDT) Only the most recent of3 resultswithin the time period is included. Reflex Status Culture to follow 01/31/2019 9:39 AM CDT [facility] RBC UA 21-50(A) None Seen, 0-2, 3-5 # /hpf 01/31/2019 9:39 AM CDT [facility] WBC UA 11-20(A) None Seen, 0-5 # /hpf 01/31/2019 9:39 AM CDT [facility] Bacteria UA None Seen None Seen 01/31/2019 9:39 AM CDT [facility] Squamous Epithelial Cells 6-10(A) None Seen, 0-2, 3-5 /hpf 01/31/2019 9:39 AM CDT [facility] Mucus UA 1+ /LPF 01/31/2019 9:39 AM CDT [facility] Urine URINE SPECIMEN OBTAINED BY CLEAN CATCH PROCEDURE / Unknown Collection / Unknown 01/31/2019 9:14 AM CDT 01/31/2019 9:29 AM CDT Narrative [facility] - 01/31/2019 9:39 AM CDT Master Mcnamara MD LAB - URINALYSIS ORD ERABLES [facility] [address] [address] * CARDIAC RHYTHM STRIP ORDER (01/17/2019 1:07 PM CDT) Narrative 01/17/2019 1:07 PM CDT Ordered by an unspecified provider. Scanned Document CARDIAC SERVICES ORD ERABLES * GROSS + MICRO EXAM (ILL) (01/16/2019 7:38 AM CDT) Case Report Surgical Pathology Report Case: [id number] Authorizing Provider: Nilesh Garcia MD Collected: 01/16/2019 07:38 AM Ordering Location: [facility] Received: 01/16/2019 09:27 AM Pathologist: John Burr MD Specimens: A) - Endocervix Biopsy, ENDOCERVICAL BIOPSY B) - CervixBiopsy, EXOCERVICAL BIOPSY 01/17/2019 3:18 PM CDT [facility] Final Diagnosis A. ENDOCERVICAL LEEP: - SEVERE SQUAMOUS DYSPLASIA, FOCAL, COMPLETELY EXCISED. B. ECTOCERVICAL LEEP: - EXTENSIVE SEVERE SQUAMOUS DYSPLASIA INVOLVING ENDOCERVICAL GLANDS EXTENDING TO THE PERIPHERAL CAUTERIZED MARGIN. RICHY/yoni 01/17/2019 3:18 PM CDT [facility] Microscopic Description and Comment Microscopic examination is performed and substantiates the above diagnosis. 01/17/2019 3:18 PM CDT [facility] Clinical History Severe dysplasia of cervix. 01/17/2019 3:18 PM [facility] Gross Description Two specimens are received in formalin labeled Chanel ilianaTo . A. Additionally labeled e ndocervical biopsy are two pink-roldan mucosal covered pieces of tissue measuring 1.2 x 0.7 x 0.4 cm and 1.5 x 1.0 x 0.3 cm. The margin is inked black, the specimen is serially sectioned and each piece is submitted in toto in A1-A2 (A1 = smaller piece). B. Additionally labeled e xocervical biopsy are two pieces of unoriented pink soft irregular tissue measuring 2.0 x 0.8 x 0.2 and 1.0 x 0.9 x 0.2 cm. The larger piece is open at and designated 12:00. The margin is inked, the specimen is serially sectioned and submitted entirely. The larger piece in B1-9:00 half, B2-3:00 half and the smaller piece in B3. MARIA DE JESUS/RICHY/yoni 01/17/2019 3:18 PM [facility] Disclaimer The performance characteristics of all immunohistochemical and indirect immunofluorescence stains (if any) cited in this report were determined by the Histopathology Laboratory of [facility]. Some of these tests were developed by our own laboratory and have not been cleared or approved by the US Food and Drug Administration. The FDA does not require this test to go through premarket FDA review. These tests are used for clinical purposes. They should not be regarded as investigational or for research. This laboratory is certified under the Clinical Laboratory Improvement Amendments (CLIA) as qualified to perform high complexity clinical laboratory testing. This case was interpreted by the [facility] Department of Pathology. When applicable, select reference laboratory testing is performed at the [facility], [address] [place] [id number]. 01/17/2019 3:18 PM [facility] Embedded Images 01/17/2019 3:18 PM [facility] Pathology/Cytology ENDOCERVICAL BIOPSY / Unknown 01/16/2019 7:38 AM CDT 01/16/2019 9:27 AM CDT Miscellaneous samples (specimen) CERVICAL BIOPSY SPECIMEN / Unknown 01/16/2019 7:39 AM CDT 01/16/2019 9:27 AM CDT Nilesh Garcia MD LAB - PATHOLOGY/CYTO LOGY ORDERABLES [facility] [address] * URINALYSIS REFLEX TO MICROSCOPIC NO CULTURE (01/16/2019 6:17 AM CDT) Only the most recent of2 resultswithin the time period is included. Color UA Yellow Straw, Yellow 01/16/2019 6:34 AM CDT [facility] Clarity UA Clear Clear 01/16/2019 6:34 AM CDT [facility] Glucose UA Negative Negative 01/16/2019 6:34 AM CDT [facility] Bilirubin UA Negative Negative 01/16/2019 6:34 AM CDT [facility] Ketone UA Negative Negative 01/16/2019 6:34 AM CDT [facility] Specific [place] UA 1.025 1.005 - 1.030 01/16/2019 6:34 AM CDT [facility] Blood UA Negative Negative 01/16/2019 6:34 AM CDT [facility] pH UA 5.0 5.0 - 8.0 pH 01/16/2019 6:34 AM CDT [facility] Protein UA Negative Negative 01/16/2019 6:34 AM CDT [facility] Urobilinogen UA Negative Negative mg/dL 01/16/2019 6:34 AM CDT [facility] Nitrite UA Negative Negative 01/16/2019 6:34 AM CDT [facility] Leukocyte UA Negative Negative 01/16/2019 6:34 AM CDT [facility] Urine Microscopy Urine microscopy not indicated 01/16/2019 6:34 AM CDT [facility] Urine URINE SPECIMEN OBTAINED BY CLEAN CATCH PROCEDURE / Unknown Collection / Unknown 01/16/2019 6:17 AM CDT 01/16/2019 6:26 AM CDT Narrative [facility] - 01/16/2019 6:34 AM CDT Nilesh Garcia MD LAB - URINALYSIS ORD ERABLES [facility] [address] * HCG URINE QUALITATIVE - POCT (IP) BEAKER - ILL (01/16/2019 6:08 AM CDT) Only the most recent of3 resultswithin the time period is included. HCG Qual Urine Negative Negative [facility] Lot # [id number] [facility] T TEST[facility] Expiration Date 2020-05-12 [facility] QC Verified Yes Yes [facility] Urine URINE / Unknown 01/16/2019 6 :08 AM CDT Nilesh Garcia MD LAB - POINT OF CARE ORDERABLES Performing Organization Address [facility]/ZIP Co de Phone Number [facility] POCT TESTING [address] * STREP A SCREEN DIRECT W RFLX STREP A CULTURE (11/26/2018 12:22 PM CDT) Strep A Rapid Negative Negative 11/26/2018 12:40 PM CDT [facility] Microbiology ENTIRE THROAT (SURFACE REGION OF NECK) / Unknown Collection / Unknown 11/26/2018 12:22 PM CDT 11/26/2018 12:30 PM CDT Narrative [facility] - 11/26/2018 12:40 PM CDT Test has reflexed to a Strep A culture. Tanya Zacarias MD LAB - MICROBIOLOGY O RDERABLES Performing Organization Address [facility]/ZIP Co de Phone Number [facility] [address] * CULTURE STREP GROUP A (11/26/2018 12:22 PM CDT) Culture Negative for beta-hemolytic Streptococcus Group A MIGUEL ÁNGEL 11/28/2018 7:09 AM CDT [facility] Microbiology ENTIRE THROAT (SURFACE REGION OF NECK) / Unknown Collection / Unknown 11/26/2018 12:22 PM CDT 11/26/2018 12:30 PM CDT Tanya Zacarias MD LAB - MICROBIOLOGY O RDERABLES [facility] [address] * XR ABDOMEN OBSTR SERIES W PA CHEST [id number] (05/30/2018 10:55 AM CAR STARTER) Anatomical Region Laterality Modality Abdomen Radiographic Tamar ging 05/30/2018 10:5 8 AM CAR STARTER Impressions 05/30/2018 11:06 AM CAR STARTER COMPARISON: No comparison. Unremarkable intestinal gas pattern. Large amount of retained colonic stool within the ascending colon and transverse colon. No obvious organomegaly or mass lesions No abnormal calcifications. No evidence of pneumonia or pleural effusion Cardiac size is unremarkable Pulmonary vascularity is within normal limits No pneumothorax. Narrative 05/30/2018 11:06 AM CAR STARTER PROCEDURE: XR ABD OBSTR SERIES W CHEST 1VW 05/30/2018 10:58 AM HISTORY: Constipation, unspecified. FINDINGS AND Procedure Note Mario Lewis MD - 05/30/2018 PROCEDURE: XR ABD OBSTR SERIES W CHEST 1VW 05/30/2018 10:58 AM HISTORY: Constipation, unspecified. FINDINGS AND IMPRESSION COMPARISON: No comparison. Unremarkable intestinal gas pattern. Large amount of retained colonic stool within the ascending colon and transverse colon. No obvious organomegaly or mass lesions No abnormal calcifications. No evidence of pneumonia or pleural effusion Cardiac size is unremarkable Pulmonary vascularity is within normal limits No pneumothorax. Leeann Lozano APRN-CAGE CLERK DIAGNOSTIC IM AGING ORDERABLES * US PELVIS COMPLETE (12/21/2013 8:00 AM CDT) Anatomical Region Laterality Modality Pelvis Ultrasound 12/21/2013 9:17 AM CDT Impressions 12/21/2013 4:16 PM CDT Normal pelvic ultrasound. No residual cyst. Small follicles bilaterally. Narrative 12/21/2013 4:16 PM CDT PELVIC ULTRASOUND 12/21/2013 HISTORY: Pelvic pain. History of right ovarian cyst. Transabdominal study only. FINDINGS: Uterus 6.7 x 4.4 x 2.5 cm Endometrial stripe thickness normal at 2 mm. Right ovary 3 x 1.5 x 1.6 cm. Left ovary 1.7 x 1.7 x 3.1 cm. There are small follicles bilaterally but there is no pathology. No pelvic fluid seen. Procedure Note Vlad Carlson MD - 12/21/2013 PELVIC ULTRASOUND 12/21/2013 HISTORY: Pelvic pain. History of right ovarian cyst. Transabdominal study only. FINDINGS: Uterus 6.7 x 4.4 x 2.5 cm Endometrial stripe thickness normal at 2 mm. Right ovary 3 x 1.5 x 1.6 cm. Left ovary 1.7 x 1.7 x 3.1 cm. There are small follicles bilaterally but there is no pathology. No pelvic fluid seen. IMPRESSION Normal pelvic ultrasound. No residual cyst. Small follicles bilaterally. 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 Normal appearing ovaries. No free fluid in cul-de-sac. No adnexal mass lesion. No ovarian torsion. Narrative 01/26/2013 8:03 AM CDT PELVIC SONOGRAM 01/26/2013 CLINICAL HISTORY: Left lower quadrant pain. The possibility of bicornuate uterus. FINDINGS: Uterus measures 7.4 x 4.2 x 2.4 cm in size. Endometrial stripe measurement on the right horn of the uterus is 2.2 mm, and the left horn of the uterus is 2 mm. Right ovary measures 2.8 x 1.1 x 1.5 cm. Left ovary measures 2.2 x 1.1 x 1.3 cm in size. On doppler examination, normal appearing blood flow is noted in both ovaries. No free fluid is noted in cul-de-sac. No adnexal mass lesion is seen. Procedure Note Mario Lewis MD - 01/26/2013 PELVIC SONOGRAM 01/26/2013 CLINICAL HISTORY: Left lower quadrant pain. The possibility of bicornuate uterus. FINDINGS: Uterus measures 7.4 x 4.2 x 2.4 cm in size. Endometrial stripe measurement on the right horn of the uterus is 2.2 mm, and the left horn of the uterus is 2 mm. Right ovary measures 2.8 x 1.1 x 1.5 cm. Left ovary measures 2.2 x 1.1 x 1.3 cm in size. On doppler examination, normal appearing blood flow is noted in both ovaries. No free fluid is noted in cul-de-sac. No adnexal mass lesion is seen. 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 Normal appearing ovaries. No free fluid in cul-de-sac. No adnexal mass lesion. No ovarian torsion. Daniel HEARD US ORDERABLES * URINALYSIS MICROSCOPIC ONLY (01/25/2013 10:58 PM CDT) RBC UA None None , 0-2 # /hpf 01/25/2013 11:36 PM CDT [facility] WBC UA 0-2 None , 0-2, 2-5 # /hpf 01/25/2013 11:36 PM CDT [facility] Bacteria UA None Seen None Seen, Trace 01/25/2013 11:36 PM CDT [facility] Epithelial Cell UA 0-2 0-2, 2-5, 5-10 01/25/2013 11:36 PM CDT [facility] Urine URINE SPECIMEN OBTAINED BY CLEAN CATCH PROCEDURE / Unknown 01/25/2013 10:58 PM CDT 01/25/2013 11:06 PM CDT Narrative [facility] - 01/25/2013 11:36 PM CDT Bacteria, epithelial cells, mucus, and crystals are reported as quantity/HPF. Daniel HEARD LAB - URINALYSIS ORD ERABLES [facility] [address] * GROSS + MICRO EXAM (09/16/2008 8:59 AM CDT) Result CASE NUMBER [id number] Comment: ORDERING PHYSICIAN JUNIOR MARCOS SPECIMEN TYPE Tonsils-bilateral *CLINICAL HISTORY A 13 year old female with recurrent tonsillitis underwent laser tonsillectomy. SPECIMEN SOURCE Bilateral tonsils. GROSS DESCRIPTION The specimen is received in one part. Received in formalin, labeled with the patient's identification, and designated jerald tonsils are two unspecified tonsils (2.6 x 1.4 x 1.2 cm, 2.0 x 1.5 x 1.4 cm). The mucosa of each tonsil is roldan-pink, shiny, and convoluted. The cut surface appears roldan-pink in both tonsils without any discrete or mass lesions. A patient registration representative portion from each tonsil is submitted in cassette A1. HC/lw GROSSED BY PATO TAYLOR M.D. *MICROSCOPIC EXAM Microscopic examination substantiates the above cited diagnosis. READ BY PATO TAYLOR M.D. DIAGNOSIS TONSIL, BILATERAL, TONSILLECTOMY -LYMPHOID FOLLICULAR HYPERPLASIA. RELEASED BY PATO TAYLOR MISCELLANEOUS SAMPLES / Unknown 09/16/2008 8:59 AM CDT 09/16/2008 11:18 AM CDT Historical Provider MD LAB - PATHOLOGY/C YTOLOGY ORDERABLES Care Teams Lead Cook Relationship Specialty Start Date End Date Gavino Mills MD [address] [place] [address] PCP - General Family Medicine 02/06/23 Stacie Guthrie, DROP WIRE HANGER-CAGE CLERK [address] [facility] [address] [place] [id number] Nurse Practitioner 05/12/20 Karen Huizar MD [address] [facility] [address] [place] [id number] Obstetrics and Gynecology 05/12/20
--- OUTSIDE RECORDS SUMMARY | 2024-07-31 01:08 | XMS_ITS | Clinical Summary ---
Author Organization [facility] Address [address] [place] [address] Care Team Providers Care Admissions Advisor Name Role Phone Stacie Guthrie APRN-EVA Unavailable [phone] Karen Huizar MD Unavailable [phone] Gavino Mills MD Primary Care Provider [phone] Source Comments [facility],non-owned Affiliates and Associated Physician Practices is amultiple site organization consisting of ambulatory clinics and hospital sitesin [place], [place], [place] and [place]. This disclosure is being madepursuant to the Care Everywhere program and may not contain all information available regarding this patient. Last updated 18.[facility] Local Plant Source Allergies Active Allergy Reactions Criticality Noted Date Comments Amoxicillin Rash Medium 01/12/2019 Augmentin Rash Medium 01/25/2013 Nickel Rash Medium 01/12/2019 Medications Be aware that medications may not be up to date on this document. Always verify current medications with the patient. No known medications Active Problems Problem Noted Date Diagnosed Date Vitamin D deficiency 10/29/2019 Major depressive disorder, recurrent episode, se juancarlos 11/21/2013 Overview (03/13/2015): Immunizations Name Administration Dates Next Due Covid Moderna primary monovalent 12+ yr 0.5mL INFLUENZA VACCINE 03/13/2020 TDAP (7yrs+) 10/29/2019 Family History Medical History Relation Name Comments Migraine Maternal Aunt Depression Maternal Grandfather Hypertension Maternal Grandfather Cancer Maternal Grandmother ovarian , basal cell carcinoma Cancer - Ovarian Maternal Grandmother Depression Maternal Grandmother Hypertension Maternal Grandmother Hypertension Mother Leukemia Paternal Grandfather Lung Disease Paternal Grandmother Depression Sister Cancer - Colon Neg Hx Relation Name Status Comments Father Alive Maternal Aunt Alive Maternal Grandfather Alive Maternal Grandmother Alive Maternal Uncle Alive Mother Alive Paternal Aunt Alive Paternal Grandfather Alive Paternal Grandmother Paternal Uncle Alive Sister Alive Social History Tobacco Use Types Packs/Day Years [...] Mass Index 23.73 09/27/2023 2:40 PM CDT Plan of Treatment Health Maintenance Due Date Last Done Comments PAP SMEAR 1995 HIV SCREENING 2010 HEPATITIS B VACCINE (1 of 3 - 19+ 3-dose series) 2014 COVID-19 VACCINE (2023-2 5 season) 2024 09/18/2020 INFLUENZA VACCINE (#1) 2024 2, 03/13/2020 DEPRESSION SCREENING 06/13/2024 09/27/2023 DTAP/TDAP/TD VACCINES (2 - T d or Tdap) 10/28/2029 10/29/2019 ZOSTER VACCINE (1 of 2) 2045 HEPATITIS C SCREENING Completed 08/27/2021 HIB VACCINE Aged Out No longer eligi ble based on patient's age to complete this topic HPV VACCINE Aged Out No longer eligi ble based on patient's age to complete this topic MENINGOCOCCAL (Group B) VACCINE Aged Out No longer eligible b ased on patient's age to complete this topic MENINGOCOCCAL VACCINE Aged Out No godfrey arielle eligible based on patient's age to complete this topic PNEUMOCOCCAL VACCINE Aged Out No long er eligible based on patient's age to complete this topic Procedures Procedure Name Priority Date/Time Associated Diagnosis Comments HEPATITIS C ANTIBODY W RFLX PCR Routine 08/27/2021 3:46 PM CDT Need for hepatitis C screening test from Last 3 Months or Most Recently Relevant to Health Maintenance Results * HEPATITIS C ANTIBODY W RFLX PCR (08/27/2021 3:46 PM CDT) Hepatitis C Antibody <0.1 0.0 - 0.9 s/co ratio [facility] ACCOUNT BILL Blood BLOOD SPECIMEN / Unknown 08/27/2021 3:46 PM CDT 08/27/2021 Narrative Resulting Agency Comment Lab Testing performed at: [facility] [address] [facility] [id number] Sade Aragon TEST FACILITY ENGINEER-PHOTO COLORER LAB - CHEMISTRY ORDERABLES [facility] ACCOUNT BILL [address] [place] [address] from Last 3 Months or Most Recently Relevant to Health Maintenance Care Teams Admissions Advisor Relationship Specialty Start Date End Date Gavino Mills MD [address] [place] [address] PCP - General Family Medicine 02/06/23 Stacie Guthrie, TEST FACILITY ENGINEER-PHOTO COLORER [address] [facility] [address] [place] [address] Nurse Practitioner 05/12/20 Karen Huizar MD 1000 [facility] [address] [place] [address] Obstetrics and Gynecology 05/12/20
--- OUTSIDE RECORDS SUMMARY | 2024-07-31 01:08 | XMS_ITS | Referral Summary ---
Author Organization [facility] Address [address] [place] [address] Care Team Providers Care Grain Sampler Name Role Phone Stacie Guthrie APRN-EVA Unavailable [phone] Karen Huizar MD Unavailable [phone] Gavino Mills MD Primary Care Provider [phone] Source Comments [facility],non-owned Affiliates and Associated Physician Practices is amultiple site organization consisting of ambulatory clinics and hospital sitesin [place], [place], [place] and [place]. This disclosure is being madepursuant to the Care Everywhere program and may not contain all information available regarding this patient. Last updated 18.[facility] [employer] Allergies Active Allergy Reactions Criticality Noted Date [...] 0.5mL INFLUENZA VACCINE 03/13/2020 TDAP (7yrs+) 10/29/2019 Social History Tobacco Use Types Packs/Day Years [...] Mass Index 23.73 09/27/2023 2:40 PM CDT Functional Status Functional Status Response Date of Assess ment Is person deaf or have serious hearing difficult y? No 01/16/2019 Is person blind or have serious difficulty seein g? No 01/16/2019 Does person have serious dif ficulty walking/climbing stairs? No 01/16/2019 Does person have difficulty dressing/bathing? No 01/16/2019 Does person have difficulty doing errands alone? No 01/16/2019 Cognitive Status Response Date of Assessm ent Does person have difficulty concentrating/remembering/making decisions? No 01/16/2019 Plan of Treatment Not on file Procedures Procedure Name Priority Date/Time Associated Diagnosis [...] Agency Comment Lab Testing performed at: [facility] [place] [address] [facility] [id number] Sade Aragon ATMOSPHERIC PHYSICS PROFESSOR-LENS GRINDER AND POLISHER LAB - CHEMISTRY ORDERABLES [facility] ACCOUNT BILL [address] [place] [address] from Last 3 Months or Most Recently Relevant to Health Maintenance Care Teams Grain Sampler Relationship Specialty Start Date End Date Gavino Mills MD [address] [place] [address] PCP - General Family Medicine 02/06/23 Stacie Guthrie, ATMOSPHERIC PHYSICS PROFESSOR-LENS GRINDER AND POLISHER [address] [place] [address] [address] [place] [address] Nurse Practitioner 05/12/20 Karen Huizar MD 1000 [facility] [address] [place] [address] Obstetrics and Gynecology 05/12/20
--- OUTSIDE RECORDS SUMMARY | 2024-07-31 01:08 | XMS_ITS | Continuity of Care Document ---
Author Organization [facility] Address [address] [place] [address] Social History Not on File Plan of Treatment Not on file
--- OUTSIDE RECORDS SUMMARY | 2024-07-31 01:08 | XMS_ITS | Clinical Summary ---
Author Organization [facility] Address [address] [place] [address] Care Team Providers Care Cigarette Tester Name Role Phone Gavino Mills MD Primary Care Provider Allergies Active Allergy Reactions Criticality Noted Date Comments Amoxicillin Rash Medium 01/12/2019 Amoxicillin-Pot Clavulanate Rash Medium 01/26/20 13 Nickel Rash Medium 01/12/2019 Medications FLUoxetine 40 mg capsule Take 40 mg by mouth daily. Active ondansetron (ZOFRAN ODT) 8 mg Tablet, Rapid Dissolve Take 1 Tablet (8 mg) by mouth every 8 hours as needed for Nausea/Emesis . Dissolve tablet on top of tongue, then swallow with saliva. 20 Tablet 08/28/2023 Active Active Problems Problem Noted Date Diagnosed Date Nausea vomiting and diarrhea 02/08/2023 Hypokalemia 02/08/[address] scan, pelvis 02/08/2023 High anion gap metabolic acidosis 02/08/2023 Serum total bilirubin elevated 02/08/2023 Starvation ketoacidosis 02/08/2023 Resolved Problems Problem Noted Date Diagnosed Date Resolved Date Normal labor 06/08/2022 07/15/2022 06/08/22, Ernestine 06/08/2022 02/0 07/2022 Supervision of normal first , antepartum 12/31/2021 07/15/2022 Encounters Date Type Department Care Team Description 07/10/2024 External Device Data [facility] ABSTRACTION Provider, Abstract 07/04/2024 External Device Data [facility] ABSTRACTION Provider, Abstract 07/04/2024 External Device Data [facility] ABSTRACTION Provider, Abstract from Last 3 Months Immunizations Immunization Administration Dates Next Due (ADACEL/BOOSTRIX)(10 YR UP) TDAP VACCINE, 0.5ML, IM 03/25/2022 INFLUENZA VACCINE QUADRIVALENT 6 MOS UP PF IM Family History Medical History Relation Name Comments Heart Disease Mother Relation Name Status Comments Father Alive Mother Social History Tobacco Use Types Packs/Day Years Used Date Smoking Tobacco: Never Smokeless Tobacco: Never Tobacco Cessation:Counseling Given: Not Answered Alcohol Use Standard Drinks/Week Comments Not Currently 0 (1 standard drink = 0.6 oz pur e alcohol) Feeling Safe Answer Date Recorded Are you in a relationship wi th someone who hurts you emotionally and/or physically? No 02/08/2023 Food Insecurity Answer Date Recorded Patient needs follow up regarding: Not on file 08/16/2023 Transportation Needs Answer Date Record ed Patient needs follow up regarding: Not on file 08/16/2023 Housing Stability Answer Date Recorded Patient needs follow up regarding: Not on file 08/16/2023 Utility Needs Answer Date Recorded Patient needs follow up regarding: Not on file 08/16/2023 Comments No Sex and Gender Information Value Date Recorded Sex Assigned at Not on file Legal Sex Female 3:48 PM CDT Gender Identity Not on file Sexual Orientation Not on file Last Filed Vital Signs Vital Sign Reading Time Taken Comments Blood Pressure 126/70 08/28/2023 9:25 AM CDT Pulse 68 08/28/2023 9:25 AM CDT Temperature 36.3 C (97.4 F) 08/28/2023 9:25 AM CDT Respiratory Rate 22 08/28/2023 9:25 AM CDT Oxygen Saturation 98% 08/28/2023 9:25 AM CDT Inhaled Oxygen Concentration - - Weight 62.1 kg (137 lb) 08/28/2023 9:25 AM CDT Height 172.7 cm (5' 8 ) 08/28/2023 9:25 AM CDT Body Mass Index 20.83 08/28/2023 9:25 AM CDT Plan of Treatment Health Maintenance Due Date Last Done Comments HEPATITIS B VACCINES (1 of 3 - 19+ 3-dose series) 2014 INFLUENZA VACCINE (#1) 2024 03/25/2022 COVID-19 Vaccine (2023- season) 2024 09/18/2020 CERVICAL CANCER SCREENING 07/15/2025 07/15/2022 DTAP/TDAP/TD VACCINES (3 - Td or Tdap) 03/25/2032 03/25/2022, 10/29/2019 HPV VACCINES Aged Out No longer eligi ble based on patient's age to complete this topic Procedures Procedure Name Priority Date/Time Associated Diagnosis Comments CERV/VAG CYTO AGE BASED SCREEN PAP Routine 07/15/2022 2:16 PM SPORTS TEAM MANAGER Screening for cervical cancer from Last 3 Months or Most Recently Relevant to Health Maintenance Results * CERV/VAG CYTO AGE BASED SCREEN PAP (07/15/2022 2:16 PM SPORTS TEAM MANAGER) COMMENT (PAP): Angelica Harp Comment: This order for age-based cervical cancer and STI screening follows ACOG guidelines(PB 168, 140, MYT377). See individual assays for performing site location. CLINICAL INFORMATION Angelica Harp Comment:Routine exam LAST MENSTRUAL PERIOD Angelica Harp Comment:OB PP PREV PAP: Angelica Harp Comment:NONE GIVEN PREV BX: Angelica Harp Comment:NONE GIVEN SOURCE Angelica Harp Comment:Endocervix ADEQUACY: Angelica Harp Comment:SATISFACTORY FOR ENEIDA LUATION PAP INTERP Angelica Harp Comment: Negative for intraepithelial lesion or malignancy. Atrophic pattern; predominantly parabasal cells COMMENT (PAP TEST) Q ueduardo Harp Comment: This Pap test has been evaluated with computer assisted technology. WALLPAPERER: Alvaro Harp Comment: KMS, CT(ASCP) CT Screening location: [place] [address] Administration [place] [address] [address] REVIEW WALLPAPERER: Angelica Harp Comment: AMW, CT(ASCP) CT screening location: [place] [address] Administration [place] [address] Aline Harp Comment: EXPLANATORY NOTE: The Pap is a screening test for cervical cancer. It is not a diagnostic test and is subject to false negative and false positive results. It is most reliable when a satisfactory sample, regularly obtained, is submitted with relevant clinical findings and history, and when the Pap result is evaluated along with historic and current clinical information. Test Performed at: [place] [address] [address] [place] [address] Jeremias Gerardo Genital SWAB OF ENDOCERVIX / Unknown 07/15/2022 2:16 PM SPORTS TEAM MANAGER 07/15/2022 11:33 PM SPORTS TEAM MANAGER Tamiko Reynolds MD PATHOLOGY/CYTOLOGY ORDERA BLES Final Result [facility] [phone] [facility] [address] [address] [place] [address] from Last 3 Months or Most Recently Relevant to Health Maintenance Insurance [facility] [employer] MEDICAID [place] [id number] GENERIC PAYOR Advance Directives For more information, please contact: [phone] * Full Code (Latest Code Status on File) Date Activated Date Inactivated Comments 02/08/2023 2:10 AM 02/08/2023 12:35 PM * Full Code Date Activated Date Inactivated Comments 06/08/2022 7:49 AM 06/09/2022 3:27 PM * Full Code Date Activated Date Inactivated Comments 06/07/2022 10:47 PM 06/08/2022 7:48 AM Care Teams Cigarette Tester Relationship Specialty Start Date End Date Gavino Mills MD [address] [place] [address] PCP - General Family Practice 02/08/23
[2024-07-31] MEDS: LACTATED RINGERS 1,000 ML 30 ML IV CONT ×2 (09:25→11:45)
[2024-07-31] MEDS: TRANEXAMIC ACID 1,000MG/ISO100 1,000 MG/100 ML BAG 200 MG IVPB (09:25)
--- NOTE | 2024-07-31 09:26 | WPDANESEPPF ---
Anes - Initial Pre Proc Eval Procedure: Operation Date: 07/31/24 10:30 Proposed Procedures p Bilateral Breast Augmentation - Kan Sosa MD Date/Time: 07/31/24 09:26 Surgeon: Kan Sosa MD Pre Op Diagnosis: micromastia Patient Data Age: 29 Gender: F Height: 1.73 m Weight: 63.63 kg Allergies Allergy/AdvReac Type Severity Reaction Status Date / Time nickel Allergy Intermediate Rash Verified 07/31/24 09:27 Penicillins Allergy Intermediate Rash Verified 07/31/24 09:27 Home Medications ?Medication ?Instructions ?Recorded ?Confirmed ?Type aripiprazole 2 mg tablet 5 mg PO DAILY 07/17/24 07/31/24 History dextroamphetamine-amphetamine ER 5 5 mg PO PRN 07/17/24 07/17/24 History mg 24hr capsule,extend release (Adderall XR) lamotrigine 25 mg tablet 100 mg PO DAILY 07/17/24 07/31/24 History Patient hx anesthesia problems: none Family hx anesthesia problems: none Results Review: All pre-operative results and documents have been reviewed as part of the pre-operative evaluation. [facility] Social History Social History Smoking status: Current every day smoker Tobacco type: e-cigarettes/vaping Second hand tobacco smoke exposure: No Alcohol intake: never Substance use: current Substance use type: marijuana Other substance usage details: as needed Living arrangements: with family Additional living arrangements comments: with and daughter Spiritual care concerns: No Anes - Eval Final PreProcedure Day of Procedure 07/31/24 09:26 Patient weight: normal Heart: regular rate and rhythm Lungs: clear to auscultation Airway: Mallampati scale class II Neurological: alert and oriented Last oral intake: >/= 8 hours ASA classification: II Emergent: no Anesthetic plan: proceed Anesthesia type and monitoring: general LMA and standard monitoring Results Review: All pre-operative results and documents have been reviewed as part of the pre-operative evaluation. Informed Consent: The patient's anesthetic plan and its attendant risks and benefits were discussed with the patient/family/POA. Questions were solicited and answers provided to the satisfaction of the patient/family/POA.
[2024-07-31 09:32] LABS: BEDSIDEPREGUCG Negative (Negative)
[2024-07-31] MEDS: SCOPOLAMINE 1 MG PATCH 1 PATCH TRANSDERM (09:36)
--- NOTE | 2024-07-31 10:07 | WPDHPUPDATE1 ---
History and Physical Update Update Date/Time: 07/31/24 10:07 History and Physical has been reviewed, including an updated exam of the patient. There are NO changes in the patient's condition. Risks, benefits, and alternatives have been discussed and questions answered. Patient agrees to proceed with procedure.
--- NOTE | 2024-07-31 10:07 | W.PM.PROC2 ---
Procedure Note - Detailed Date of Procedure 07/31/24 Pre-op Diagnosis micromastia Post-op Diagnosis Same Procedure Performed Bilateral breast augmentation mammaplasty Surgeon Kan Sosa MD Anesthesia General Findings Bilateral Sonido Fletcher SoftTouch 605 cc Subfascial Right: REF# [id number] SN [id number] Left: REF# [id number] SN [id number] Description of Procedure She is here today for bilateral breast augmentation. Previously and again today the risks, benefits, alternatives were discussed in extensive detail. I wanted her to be very realistic about the risks involved as well as expectations. We discussed aftercare and what to monitor for. Made sure answered all of her questions to her satisfaction today and consent was obtained. Marked in the preoperative holding area with their verification. The patient was taken to the operating room placed supine on the operating table. Anesthesia was provided by anesthesiology. A surgical time-out was taken. We cleansed the skin and 1% lidocaine and 0.25% Marcaine with epinephrine was used anesthetize as a field block. She was prepped and draped in a standard sterile fashion. Tegaderm nipple Wall were placed. A 15 blade used to make an incision along the inframammary fold. Dissection was continued at 45 degree angle until the chest wall as identified. I elevated a subfascial pocket in the appropriate dimensions based on our preoperative planning for the implant. I then copiously irrigated with saline solution and verified a strict hemostasis. Next the use a triple antibiotic and Betadine containing solution to irrigate the pocket. I washed my gloves with the triple antibiotic and Betadine solution. We washed the implant immediately upon opening it with this solution and only opened it when we needed it. I used implant funnel and no-touch technique. The implant was introduced into the pocket using the funnel. Having verified positioning of the implant this was closed using 2-0 PDS followed by 3-0 Monocryl in a running subcuticular 4-0 Monocryl followed by tissue glue. Fluffs and surgical bra were placed. Patient was awoke and taken to PACU without difficulty. All instrument sponge counts were correct at the end of the case. Estimated Blood Loss 30 Drains No Packing No Pathology None sent Complications No immediate complications Condition Stable Disposition PACU
[2024-07-31] MEDS: ceFAZolin 2 GM/D5W 50 ML 2 GM/50 ML BAG IVPB (10:40)
[2024-07-31] MEDS: NACL 0.9% IRRIG POUR BOTTLE 900 ML, GENTAMICIN SULFATE INJ 160 MG, CLINDAMYCIN PHOS INJ... IRRIGATION (10:54)
[2024-07-31] MEDS: BUPivacaine HCL 0.25% PF 10 ML VIAL 30 ML INFILTRATE (10:59)
[2024-07-31] MEDS: LIDO 1%/EPINEPHRINE 1:100,000 20 ML VIAL 30 ML INFILTRATE (10:59)
[2024-07-31] MEDS: ONDANSETRON INJ 4 MG/2 ML VIAL IV PUSH (12:00)
[2024-07-31] MEDS: fentaNYL CITRATE INJ (*CRX) 100 MCG/2 ML VIAL 25 MCG IV PUSH ×4 (12:02→12:26)
[2024-07-31] MEDS: diphenhydrAMINE HCl INJ 50 MG/ML VIAL 25 MG IV PUSH (12:14)
== END 2024-07-31 13:45 | disposition home or self-care (01) ==
PROVIDERS: Visit Provider Surgery Plastic and Reconstructive Surgery
PROC: (CPT 19325; principal; 2024-07-31 10:30)
DX: Z41.1 Encounter for cosmetic surgery (principal); N64.82 Hypoplasia of breast; F17.290 Nicotine dependence, other tobacco product, uncomplicated; F12.90 Cannabis use, unspecified, uncomplicated; Z98.890 Other specified postprocedural states
CPT/HCPCS: 19325; A9270; J0690; J1100; J1171; J1200; J1580; J2004; J2250; J2405; J2704; J3010; J7120